=== PATIENT | female | born 1955 | race American Indian/Alaskan Native ===

== ENCOUNTER 2018-06-21 13:54 | Emergency (ER) | payer OTHER, MEDICARE ==
[2018-06-21] MEDS ORDERED: TYLENOL PO ONE (14:05)
[2018-06-21] MEDS ORDERED: TYLENOL ONE (14:10)
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
[2018-06-21] MEDS ORDERED: NORCO 5/325 PO ONE (17:35)
[2018-06-21] MEDS ORDERED: FLEXERIL PO ONE (17:35)
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
[2018-06-21 18:07] VITALS: BP 161/70
== END 2018-06-21 18:31 | disposition home or self-care (01) ==
LOC: ED 13:54
DX: S09.90XA Unspecified injury of head, initial encounter (principal); G44.319 Acute post-traumatic headache, not intractable; M25.561 Pain in right knee; I10 Essential (primary) hypertension; J45.909 Unspecified asthma, uncomplicated
CPT/HCPCS: 70450; 72125; 99284